=== PATIENT | female | born 1945 | race Caucasian/White ===

== ENCOUNTER → 2016-06-11 | Outpatient (CLI) | payer MEDICARE, OTHER | END | disposition home or self-care (01) | LOC: RAD.S 09:27 | DX: Z12.31 Encounter for screening mammogram for malignant neoplasm of breast (principal); R92.1 Mammographic calcification found on diagnostic imaging of breast ==

== ENCOUNTER 2016-11-27 12:18 | Emergency (ER) | payer MEDICARE, OTHER ==
--- NOTE | ~2016-11-27 | ER ---
ADMIT: 11/27/2016 RM/LOC: ER [facility] MR#: [id number] [facility] [address] [place], [place] [id number] [address] [address] [address] Emergency Room Report SEX: F AGE: 71 : 1945 DATE: 11/27/2016 CHIEF COMPLAINT: Syncope. HISTORY OF PRESENT ILLNESS: This is a 71-year-old white female coming in with syncope at the office. She had gone over there for left lower quadrant pain. They had x-rayed her, osmel blood and I think chest x-ray as well. These were essentially negative. I think she was walking back from the bathroom or in the hallway when she had a syncopal episode. She was a bit shaky they said, but really nothing more that they could find, but they called the ambulance and had sent her over here. At this time, she was somewhat somnolent and quiet at this time. There was no history of chest pain or other problems. She did have a fall 2 weeks ago according to family, about they did a CT scan that was negative. PAST MEDICAL HISTORY: I have to refer you to old records. MEDICATIONS: See list. ALLERGIES: SEE LIST. FAMILY AND SOCIAL HISTORY: She is otherwise negative. REVIEW OF SYSTEMS: Unobtainable at this time. PHYSICAL EXAMINATION: GENERAL: Initially slowly responsive and then she became less arousable and then as we are examining her, she appeared to have seizure. Valium was given. She has been a non-historian since. HEENT: Negative. NECK: Supple. Trachea in the midline. RESPIRATORY: Lungs clear to auscultation. Otherwise, negative on exam. CARDIOVASCULAR: Circulation intact. HEART: Regular rate and rhythm. ABDOMEN: Nontender. No rebound, guarding, rigidity. There are no masses on palpation. SKIN: Warm, pink and dry. EXTREMITIES: Range of motion is intact in the upper and lower extremities. NEUROLOGICAL: Alert, oriented. Motor sensory function is grossly intact. 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 LABORATORY DATA: Her initial laboratory CBC and chemistry were negative over at the office. We attempted ABGs here. A CT of the head, abdomen, and pelvis was initially ordered along with a Doppler of her left leg because this was a bigger appeared to be more swollen than the right; however, family said that this is not anything new that had been from an accident she had sometime in the past. EMERGENCY ROOM COURSE: At this time, we stopped her apparent seizure like ADMIT: 11/27/2016 RM/LOC: ER [facility] MR#: [id number] [id number] [place] [address] Emergency Room Report SEX: F AGE: 71 : 1945 activity. She was tachy and less responsive. Her pressure and pulse were very distant to the point where we could not get a pulse or blood pressure at all, and the code was called. Dopamine, epi, and atropine had been started. Her IV start was very difficult, so she ended up getting an IO while over here. We continued to code her. I will refer you to the code sheet. However, overall, she did not respond to anything that we did. Finally, the code was called with time of at 1310 hours. DIAGNOSIS: Cardiopulmonary arrest. Unknown etiology. Dr. Ford's office notified. We will sign the certificate. Brandt Greer MD/ kimberly JOB #: [id number] CC: Brandt Greer MD, Attending Physician UNKNOWN, Family Physician
== END 2016-11-27 19:00 | disposition expired ==
LOC: ER 12:18
PROC: 0T9B70Z Drainage of Bladder with Drainage Device, Via Natural or Artificial Opening (ICD-10-PCS; principal; 2016-11-27)
PROC: 0BH17EZ Insertion of Endotracheal Airway into Trachea, Via Natural or Artificial Opening (ICD-10-PCS; principal; 2016-11-27)
PROC: 5A12012 Performance of Cardiac Output, Single, Manual (ICD-10-PCS; principal; 2016-11-27)
DX: I46.9 Cardiac arrest, cause unspecified (principal); Z79.899 Other long term (current) drug therapy